=== PATIENT | female | born 1955 | race Caucasian/White ===

== ENCOUNTER 2020-06-26 16:26 | Emergency (ER) | payer MEDICARE, SELFPAY ==
[2020-06-26 16:28] VITALS: BP 154/88; PULSE 95; RESP 17; TEMP 35.9; O2SAT 100; BMI 31.5
[2020-06-26] MEDS: Amox/Clavulanate 875 MG Tablet PO (16:58)
[2020-06-26] MEDS: HYDROcodone Bitartrate/Apap 5/325 Tablet PO (16:58)
[2020-06-26] MEDS: Diphth,Pertuss(Acell),Tet Vac 0.5 ML Vial IM (16:58)
--- NOTE | 2020-06-26 17:00 | RAD_ITS ---
STUDY: X-RAY - RIGHT HAND REASON FOR EXAM: Female, 65 years old. Dogbite. TECHNIQUE: 3 view(s) of the hand. COMPARISON: None. FINDINGS: There is a soft tissue laceration at the second metacarpophalangeal joint. There is no evidence of fracture or dislocation. There are no significant degenerative changes. There are no radiodense foreign bodies. RAD/Hand Min 3 Views IMPRESSION: Soft tissue laceration at the second metacarpophalangeal joint. No radiodense body. No fracture or dislocation. Electronically Signed: Dawson Gambino MD at 17:24 EST Tel , Service support ,
--- NOTE | 2020-06-26 19:44 | ED.DCSUM_ITS ---
- ER Visit Summary Date of Service: 06/26/20 Chief Complaint: Dog bite right hand History of Present Illness: The patient is a 65 F presents with a dog bite to her right hand that occurred today. Patient states he has 2 dogs that were fighting with each other. Patient states she tried to break up the dogs. Patient states that one of her dogs bit her on her right hand. Patient describes her pain is sharp. Patient denies any paresthesias or weakness. Patient states nothing makes her pain better or worse. Patient thinks her last tetanus shot was approximately 10 years ago. Physical Examination: Vital signs are stable. Patient is afebrile. Patient is in no acute distress. Musculoskeletal exam reveals tenderness over the first second and third metacarpals of the right hand. There are multiple abrasions. There is a 2.5 cm full-thickness curvilinear laceration on the palmar aspect of the right hand over the distal second metacarpal. There is also a 2 cm full- thickness linear laceration in the webspace of the first and second digits. There is a 2 cm full-thickness laceration over the dorsal aspect of the right hand over the midportion of the second metacarpal area. There is moderate gapping of the wound margins. There is mild active bleeding. There are no f oreign bodies visualized. There is no bony crepitance or step-off. There is full range of motion of all digits. There are no tendon lacerations visualized. Strength is 5/5 in flexion and extension of the MP, PIP, and DIP joints of the first second and third digits of the right hand. Sensation was intact to light touch in all digits. Capillary refill is less than 2 seconds in all digits. Test Results: X-rays of the right hand were obtained. There are 3 views. On my interpretation, there is no foreign body noted. There is no acute fracture. Radiologist also interpreted the x-ray and agrees. Emergency Department Course and Treatment: The wounds were cleaned and irrigated with copious amounts of normal saline. The wounds were anesthetized with 1% plain lidocaine locally. The wound on the palmar aspect of the right hand was closed with 3 simple interrupted #4-0 nylon sutures, the wound in the webspace was closed with 2 simple interrupted #4-0 nylon sutures, the wound on the dorsal aspect of the hand was closed with 2 simple interrupted #4-0 nylon sutures under sterile technique. Patient tolerated the procedure well. Bacitracin dressing was applied. Patient was given a dose of Augmentin here. Patient was given a prescription for Augmentin. Patient was instructed to keep the wound clean and dry. Patient was instructed to follow-up with her primary care physician in 5 to 7 days. Patient understood and was agreeable with the plan. All questions were answered. Disposition: Discharge home Impression: 1. Dog bite right hand 2. Multiple lacerations right hand 3. Multiple abrasions right hand This note was generated with [employer] dictation software. It may contain incorrect words, spelling, and punctuation that were not noted in review of the chart prior to signing ED Disposition - Plan for ED Patient: Disposition: Home or Assisted Living Diagnosis: Dog bite of right hand, Laceration of multiple sites of right hand and fingers, Abrasion of multiple sites of right hand and finger Instructions: ED Dog Bite, ED Laceration, Hand: All Closures Prescriptions: Amox/Clavulanate Tablet [Augmentin Tablet] 875 mg PO Q12H #20 tab Transmission Status: Received by [id number] Referrals: Vish Cook MD [Primary Care Provider] - 5 Days for suture removal
== END 2020-06-26 20:12 | disposition home or self-care (01) ==
PROVIDERS: Emergency Provider Emergency Medicine; PCP Family Medicine
DX: S61.451A Open bite of right hand, initial encounter (principal); W54.0XXA Bitten by dog, initial encounter; S61.411A Laceration without foreign body of right hand, initial encounter; Z23 Encounter for immunization
CPT/HCPCS: 12002; 73130; 90471; 90715; 99285